=== PATIENT | female | born 1950 | race Asian ===

== ENCOUNTER 2025-04-01 09:33 | Emergency (ER) | payer MEDICARE, SELFPAY ==
[2025-04-01 09:38] VITALS: BP 151/93
[2025-04-01 10:12] LABS: Hematocrit 32.3 % (37.0-47.0); Hemoglobin 11.6 g/dL (12.0-16.0); Mean Corp Hgb Conc. 35.9 g/dL (33.0-37.0); Mean Corpuscular Volume 89.2 fL (81.0-99.0); Nucleated Red Blood Cells % 0 %; Platelet Count 213 10^3/uL (130-400); Red Cell Dist. Width 15.8 % (11.5-14.5)
[2025-04-01 10:35] LABS: ALT (SGPT) 15 U/L (0-35); AST (SGOT) 15 U/L (14-36); Albumin 3.8 g/dl (3.5-5.0); Alkaline Phosphatase 57 U/L (38-126); Blood Urea Nitrogen 17 mg/dl (7-17); Calcium 9.4 mg/dl (8.4-10.2); Carbon Dioxide 29 mmol/L (22-30); Chloride 107 mmol/L (98-107); Glucose 95 mg/dl (70-99); Lipase 31 U/L (23-300); Potassium 3.8 mmol/L (3.5-5.1); Sodium 137 mmol/L (135-145); Total Protein 5.8 g/dl (6.3-8.2); eGFR > 60.00
[2025-04-01 11:36] VITALS: BMI 34.3
[2025-04-01 11:50] VITALS: BP 159/76
[2025-04-01 12:00] VITALS: BP 162/71
--- NOTE | 2025-04-01 12:17 | ED.GENMED ---
History of Present Illness
General
Chief Complaint: Abdominal Symptoms
Source: patient
Exam Limitations: none
Time Seen by Provider: 04/01/25 12:03
Nursing documentation reviewed up to this point in time: agreed with
History of Present Illness
History of Present Illness:
Patient is a 75-year-old female with history of hypertension, multiple myeloma who presents to the emergency department with 1 day of abdominal pain and diarrhea. Patient states that yesterday evening she began with lower abdominal discomfort
shortly followed by multiple episodes of diarrhea. She states that at some point in the evening diarrhea stopped however she was passing bright red blood in the toilet bowl. She denies any clots.
She states that abdominal pain has improved somewhat however still present. At initial onset of pain she did have 1 episode of vomiting.
Patient denies any fever or chills. No chest pain or shortness of breath. No lightheadedness, dizziness, or episodes of fainting. No dysuria.
Patient states she had turkey for dinner last night and denies any recent changes in diet. No shellfish or undercooked meat. No known sick contacts.
Patient takes a baby aspirin daily.
Past History
Past History
ED Past Medical History: CVA, HTN, Other (Multiple myeloma) and Other (multiple myeloma)
ED Past Surgical History: Gynecological and Orthopedic
Social History
Living: with family
Review of Systems
Review of Systems
Allergies reviewed?: Yes
All Other Systems: ROS reviewed and negative except as documented in HPI and ROS
Phy Exam
Physical Exam
Physical Exam:
Vitals: Mildly hypertensive, otherwise vital signs stable. Afebrile
General: Patient is well appearing, no acute distress
Skin: Warm and dry, no rashes or lesions
Head: Normocephalic, atraumatic
Eyes: Sclera nonicteric.
Throat: Protecting airway
Neck: Normal ROM, no cervical spine tenderness, no meningismus
Cardiac: Regular rate and rhythm, no murmurs.
Pulm: Normal respiratory effort. Lungs clear bilaterally
Abdomen: Abdomen soft without any areas of focal tenderness. No rebound or guarding.
Rectal: Multiple external hemorrhoids noted. No evidence of thrombosis. No evidence of rectal bleeding on exam. No stool in vault.
Extremities: No evidence of cyanosis or edema
Neuro: AAOx3. Grossly intact.
Psychiatric: Normal affect.
Course
Orders/Labs/Results
Orders:
Orders
04/01/25 09:36
Electrocardiogram (*1) Urgent
Reason for Study: Syncope
EKG- Treatment ONCE
04/01/25 09:58
Complete Blood Count/With Diff Urgent
Comprehensive Metabolic Panel Urgent
Lipase Urgent
04/01/25 12:17
CT Abd/pelvis W Iv Cont Urgent
Comment:
Reason For Exam: lower abdominal pain, bloody diarrhea
0.9% Sodium Chloride 500 ml [Nss] 500 ml IV BOLUS
04/01/25 14:07
Amoxicillin 875 mg/Clav 125 mg [Augmentin 875 mg/125 mg] 1 tablet PO NOW STA
Abnormal Lab Results
04/01/25
09:58
WBC 3.3 L 10^3/uL
(4.8-10.8)
RBC 3.62 L 10^6/uL
(4.20-5.40)
Hgb 11.6 L g/dL
(12.0-16.0)
Hct 32.3 L %
(37.0-47.0)
MCH 32.0 H pg
(27.0-31.0)
RDW 15.8 H %
(11.5-14.5)
Absolute Lymphs (auto) 0.8 L 10^3/uL
(1.2-3.4)
Basophils % 2.1 H %
(0-2)
Total Protein 5.8 L g/dl
(6.3-8.2)
04/01/25 09:58
04/01/25 09:58
Vital Signs
Initial and Last Documented VS:
Initial Vital Signs
Temp Pulse Resp BP Pulse Ox
98.4 F 75 16 151/93 98
04/01/25 09:38 04/01/25 09:38 04/01/25 09:38 04/01/25 09:38 04/01/25 09:38
Last Documented Vital Signs
Temp Pulse Resp BP Pulse Ox
98.4 F 68 14 162/79 98
04/01/25 09:38 04/01/25 14:15 04/01/25 14:15 04/01/25 14:00 04/01/25 12:18
MDM/Problems Addressed
Differential Diagnosis Includes:
Not limited to: Viral gastroenteritis, colitis, diverticulitis, internal hemorrhoid, anemia, etc.
MDM/Problems Addressed:
75 year-old female presenting with one day of intermittent abdominal cramping associated with bloody diarrhea. Diarrhea has largely improved by arrival to ED. No associated fever or vomiting. No oral anticoagulation
Patient hemodynamically stable. On exam, she appears well and in no distress. Abdomen without any areas of focal tenderness. No rebound or guarding. No stool in rectal vault although no evidence of active rectal bleeding on exam. Cardio/pulmonary
assessment unremarkable.
Labs sent in triage with mild leukopenia and anemia, which appears baseline likely secondary to multiple myeloma. Chemistry unremarkable. CT scan w/ evidence of uncomplicated left sided colitis. Suspected of infectious/inflammatory ideology.
Patient appears well and has remained stable. She has not had any additional episodes of diarrhea or bright red blood per rectum. Unable to collect school sample.
Will start patient on short course of antibiotics to cover for possible infectious component. Do not suspect ischemia.
Feel stable for discharge home with return precautions and close follow up. Will send home with prescription for stool studies and stool collection kit. Patient comfortable with plan.
Chronic conditions affecting care:
Hypertension, multiple myeloma
Acute Exacerbation and/or Progression of Chronic Illness:
Acutely hypertensive
*Radiology
Radiology exam reviewed: radiology read reviewed
*Pulse Oximetry
SaO2: 98
Oxygen Mode of Delivery: Room air
Patient hypoxic: no
*EKG
Interpreted by ED Provider?: Yes
EKG Intrepretation Date: 04/01/25
Interpretation: abnormal
Comparison EKG: changes noted
Heart Rate: 64
Rate: normal
Rhythm: sinus
[place]: normal axis
Interval: normal QT interval
QRS Pattern: normal QRS
Ischemia: non-specific ST changes
*Therapy Manager Interpretation
Rate: normal
Interpretation: normal
Heart Rate: 64
Rhythm: sinus
*Critical Care Note
Total Time (30-74mins, 75-104mins- exclusive of procedures): Not Applicable
ED Attending Note
-
Portions of this chart may have been created with voice recognition software.� Occasional wrong word or��sound alike� substitutions may have occurred due to the inherent limitations of voice recognition software.
Discharge Plan
Departure
Patient Disposition: Home (Routine Discharge)
Date of Disposition: 04/01/25
Time of Disposition: 14:12
Patient with high blood pressure during this ER visit?: Yes
Condition: Good
Discharge Problem:
Colitis
Instructions: Clear Liquid Diet, [place] Diet, Colitis (DC), BLOOD PRESSURE
Prescriptions:
New
amoxicillin-pot clavulanate 875-125 mg tablet
1 tab PO BID Qty: 14 0RF
No Action
calcium carbonate [calcium] 500 MG tablet
500 mg PO BID
aspirin 81 MG tablet,chewable
162 mg PO DAILY
sertraline 50 MG tablet
50 mg PO HS
lisinopril 2.5 MG tablet
2.5 mg PO DAILY
lenalidomide [Revlimid] 10 MG capsule
10 mg PO .SEE BELOW
Patient Comments:
'21 day on, 7 days off'
[place]
IV .[id number]
dextromethorphan-guaifenesin 10 ML syrup
10 ml PO Q6HPRN PRN (Reason: COUGH) Qty: 0 0RF
oxycodone-acetaminophen 1 TABLET tablet
1 tab PO Q6HPRN PRN (Reason: pain) Qty: 0 0RF
levofloxacin 500 MG tablet
500 mg PO DAILY Qty: 5 0RF
Saccharomyces boulardii 250 MG capsule
250 mg PO DAILY 0RF
Rx Instructions:
Over the counter probiotic - Helps prevent diarrhea - Take for one week
Referrals:
Markus Naqvi MD [Family Provider, Family Practice] - Follow up in 5-7 days
Activity Restrictions/Additional Instructions:
RETURN TO THE EMERGENCY DEPARTMENT WITH ANY FEVER, PERSISTENT/WORSENING ABDOMINAL PAIN, INTRACTABLE NAUSEA/VOMITING, PERSISTENT DIARRHEA OR SIGNS OF DEHYDRATION, SIGNIFICANT BLEEDING, WORSENING IN CURRENT SYMPTOMS, OR ANY OTHER CONCERNS
- As discussed�your white blood cell count was low today in the emergency department. Otherwise, your lab work showed no acute abnormalities. Your CT scan did show findings of a left-sided colitis.
-A prescription for antibiotics has been sent to your pharmacy. Please take twice a day for the next 7 days. I would recommend a clear liquid diet followed by low fiber and slowly advance as tolerated. It is important to stay well-hydrated.
- I sent you home with a prescription to have an outpatient stool culture performed.
- Follow-up with your primary care provider within 1 week for further evaluation/management to ensure that your symptoms are improving
Monitor your symptoms closely and return to the emergency department with any acute worsening/new symptoms or any other concerns
Interventions
Interventions:
*Risk Screen - Suicide Last Done: 04/01/25 11:36
*General Assessment Last Done: 04/01/25 11:36
*Neglect/Abuse Screening Last Done: 04/01/25 11:36
*ED COVID-19 Vaccine History Last Done: 04/01/25 11:36
*ED Influenza Vaccine History Last Done: 04/01/25 11:36
[facility] Fall Risk Assessment Tool Last Done: 04/01/25 11:36
*Nursing Disposition Last Done: 04/01/25 14:35
[id number] Assessment Last Done: 04/01/25 11:36
Discharge Date and Time
Discharge Date/Time: 04/01/25 14:42
Print Language: LATVIAN
[2025-04-01] MEDS: NSS 500 IV (13:10)
[2025-04-01 13:12] VITALS: BP 165/86
[2025-04-01 14:00] VITALS: BP 162/79
[2025-04-01] MEDS: AUGMENTIN 875 MG/125 MG 1 TABLET PO (14:22)
== END 2025-04-01 14:42 | disposition home or self-care (01) ==
LOC: EMR 09:33
PROVIDERS: EMERGENCY PHYSICIAN Emergency Medicine; FAMILY PHYSICIAN Family Medicine
DX: K51.511 Left sided colitis with rectal bleeding (principal); I10 Essential (primary) hypertension; C90.00 Multiple myeloma not having achieved remission; Z79.82 Long term (current) use of aspirin; Z86.73 Personal history of transient ischemic attack (TIA), and cerebral infarction without residual deficits
CPT/HCPCS: 99284; 96360; 74177; 80053; 83690; 85025; 93005; Q9967